=== PATIENT | female | born 1985 | race African-American/Black ===

== ENCOUNTER 2017-05-24 17:50 | Emergency (ER) | payer SELFPAY ==
[2017-05-24 18:02] VITALS: BP 198/114
[2017-05-24] MEDS ORDERED: HYDR12.58 PO (18:21)
[2017-05-24] MEDS ORDERED: AMOX500T PO (18:21)
[2017-05-24] MEDS ORDERED: TRAM-48 PO (18:21)
--- NOTE | 2017-05-24 18:21 | PHYS DOC ---
Past Medical History Past Medical History: Hypertension Past Surgical History: , Other Additional Past Surgical Histo: hernia Alcohol Use: Rarely Drug Use: None Adult General Chief Complaint Chief Complaint: DENTAL PROBLEM HPI HPI Patient is a 31 year old female with history of hypertension currently not on any medication who presents today with 8 out of 10 in the right lower jaw dental pain that began 2 days ago. Patient states she broke her right lower tooth in February 2017. She states she called the dental school but they have not returned her call. Patient denies any fever or trismus. Review of Systems Review of Systems Constitutional: Denies fever or chills [] Eyes: Denies change in visual acuity, redness, or eye pain [] HENT: Dental pain Respiratory: Denies cough or shortness of breath [] Cardiovascular: No additional information not addressed in HPI [] Musculoskeletal: Denies back pain or joint pain [] Integument: Denies rash or skin lesions [] Neurologic: Denies headache, focal weakness or sensory changes [] Allergies Allergies Allergies Coded Allergies Type Severity Reaction Last Updated Verified No Known Drug Allergies 05/24/17 No Physical Exam Physical Exam Constitutional: Well developed, well nourished, no acute distress, non-toxic appearance. [] HENT: Normocephalic, atraumatic, bilateral external ears normal, oropharynx moist, no oral exudates, nose normal. [] Tooth #31 is broken, scattered dental carriers noted. No gum erythema or swelling Eyes: PERRLA, EOMI, conjunctiva normal, no discharge. [] Neck: Normal range of motion, no tenderness, supple, no stridor. [] Cardiovascular:Heart rate regular rhythm, no murmur [] Lungs & Thorax: Bilateral breath sounds clear to auscultation [] Abdomen: Bowel sounds normal, soft, no tenderness, no masses, no pulsatile masses. [] Skin: Warm, dry, no erythema, no rash. [] Back: No tenderness, no CVA tenderness. [] Extremities: No tenderness, no cyanosis, no clubbing, ROM intact, no edema. [] Neurologic: Alert and oriented X 3, normal motor function, normal sensory function, no focal deficits noted. [] Psychologic: Affect normal, judgement normal, mood normal. [] Current Patient Data Vital Signs Vital Signs Date Time Temp Pulse Resp B/P (MAP) Pulse Ox O2 Delivery O2 Flow Rate FiO2 05/24/17 18:02 99.8 73 20 100 Room Air 99.8 EKG EKG [] Radiology/Procedures Radiology/Procedures [] Course & Med Decision Making Course & Med Decision Making Pertinent Labs and Imaging studies reviewed. (See chart for details) This is a 31-year-old female patient presenting to the ED with dental pain. She broke her tooth in February 2017. She states she called the dental school but they have not called her back. She will be discharged with amoxicillin and Ultram for pain. Her blood pressure was 198/114. She states she has history of hypertension and has never followed up with any primary care doctor. She has never taken any blood pressure medicine. She has no neurological cardiac symptoms. She is an -French I started her on HCTZ. Provided her a doctors list for follow up. Dragon Disclaimer Dragon Disclaimer This electronic medical record was generated, in whole or in part, using a voice recognition dictation system. Departure Departure Impression: Primary Impression: Accelerated hypertension Additional Impressions: Dentalgia Dental caries Disposition: HOME, SELF-CARE Condition: STABLE Patient Instructions: Dental Caries, Hypertension Additional Instructions: You were seen for dental pain. Put you were on antibiotics. You must complete them. Your on blood pressure was 198/114, normal blood pressure is 120/80. We started you on blood pressure medicine. You must establish care with a doctor from the list provided. You need to follow up for high blood pressure management. Scripts Hydrochlorothiazide (HYDROCHLOROTHIAZIDE TABLET) 12.5 Mg Tablet 1 TAB PO DAILY, #20 TAB 5 Refills Prov: BETH PATEL APRN 05/24/17 Tramadol Hcl (ULTRAM) 50 Mg Tablet 1 TAB PO Q6HRS, #30 TAB MUST FILL AMOXICILLIN AND HCTZ PRIOR TO PAIN MEDICINE CAN NOT FILL ULTRAM IF SHE HAS HAD ANY NARCOTICS IN THE LAST 7 SEVEN DAYS CAN NOT FILL PAST 05/25/2017. Prov: BETH PATEL APRN 05/24/17 Amoxicillin (AMOXICILLIN) 500 Mg Tablet 1 TAB PO TID, #30 TAB Prov: BETH PATEL APRN 05/24/17 Problem Qualifiers BETH PATEL APRN May 24, 2017 18:21
== END 2017-05-24 18:24 | disposition home or self-care (01) ==
LOC: ER 17:50
DX: K02.9 Dental caries, unspecified (principal); I10 Essential (primary) hypertension
CPT/HCPCS: 99283